=== PATIENT | male | born 1950 | race Caucasian/White ===

== ENCOUNTER → 2018-02-22 | Day surgery (SDC) | payer OTHER ==
[~2018-02-22] VITALS: Ht 188 cm; Wt 99.8 kg
--- NOTE | 2018-02-22 08:31 | Operative Report ---
Operative/Inv Procedure Report Surgery Date: 02/22/18 Name of Procedure: cystoscopy: hydrodistention Pre-Operative Diagnosis: hematuria Post-Operative Diagnosis: same Estimated Blood Loss: scant Surgeon/Director Of Counterintelligence: Bart Salmeron MD Anesthesia: moderate sedation Drains: none Complications: none Operative Indication: hematuria Operative/Procedure Note Note: The patient was taken to the operative room and placed on the OR table in supine position. Timeout was performed in order to confirm the patient's identity, procedure, anesthesia, antibiotics, as well as any other pertinent information. After adequate anesthesia, and antibiotics, the patient was then placed lithotomy stirrups draped and prepped in the usual surgical fashion. A 22 [place] cystoscope sheath with a 30 angle lens was inserted into the urethra and advanced into the bladder without difficulty. The bladder was noted to have the findings as discussed above. The bladder was then hydrodistended 2 with the irrigation fluid at 40 cm above the symphysis pubis. No evidence of tumor, increased petechiae, nor Hunner's ulceration was noted. Both ureteral orifices had clear reflux in their orthotopic position. No terminal bleed with drainage. Bladder capacity was normal. The bladder was then drained and the cystoscope was removed under direct visualization. All sponge, needle, and instrument count were correct at the end of the case. The patient tolerated procedure well and was taken to recovery room in satisfactory condition. Findings: BPH, no bladder tumor, and no stone. Discharge Disposition: Same Day Admissions CC: Bart Salmeron MD
== END ==
LOC: STS 03:26
DX: R31.9 Hematuria, unspecified (principal); N40.1 Benign prostatic hyperplasia with lower urinary tract symptoms; R33.9 Retention of urine, unspecified; N48.89 Other specified disorders of penis; I25.2 Old myocardial infarction; Z87.891 Personal history of nicotine dependence; I10 Essential (primary) hypertension
CPT/HCPCS: 93005; 93010; J2250